=== PATIENT | female | born 1935 | race Caucasian/White ===

== ENCOUNTER 2017-11-03 10:48 | Day surgery (SDC) | payer MEDICARE, BC ==
[2017-11-03 11:16] VITALS: TEMP 98.6
[2017-11-03] MEDS ORDERED: BUPIVACAINE HCL 0.25% MPF 10 ML SOL INFIL ONE (11:42)
[2017-11-03] MEDS: DEXAMETHASONE SOD PHOS PF 10 MG/ML SOL IJ ONE ×3 (11:51→12:05)
[2017-11-03 12:27] VITALS: BP 177/97; PULSE 54; RESP 18; O2SAT 98
== END 2017-11-03 13:44 | disposition home or self-care (01) | DRG 552 ==
LOC: SURG 10:48
PROVIDERS: ATTEND Nurse Anesthetist, Certified Registered
DX: M54.5 Low back pain (principal); M48.062 Spinal stenosis, lumbar region with neurogenic claudication
CPT/HCPCS: J1100

== ENCOUNTER → 2017-12-14 | Day surgery (SDC) | payer MEDICARE, BC ==
[~2017-12-14] MED LIST: BUPIVACAINE HCL 0.25% MPF 10 ML SOL INFIL ONE; DEXAMETHASONE SOD PHOS PF 10 MG/ML SOL IJ ONE
[2017-12-14 13:38] VITALS: BP 155/93; PULSE 59; RESP 18; TEMP 97.4; O2SAT 93
== END | disposition home or self-care (01) | DRG 552 ==
LOC: SURG 12:10
PROVIDERS: ATTEND Nurse Anesthetist, Certified Registered
DX: M48.062 Spinal stenosis, lumbar region with neurogenic claudication (principal)
CPT/HCPCS: J1100

== ENCOUNTER 2018-02-22 12:33 | Day surgery (SDC) | payer MEDICARE, BC ==
[2018-02-22] MEDS ORDERED: LIDOCAINE HCL 1% MPF SOL ONE (13:08)
[2018-02-22] MEDS: BUPIVACAINE HCL 0.25% MPF 10 ML SOL INFIL ONE ×2 (13:32→13:43)
[2018-02-22 14:06] VITALS: TEMP 97.3
[2018-02-22 15:49] VITALS: PULSE 74
[2018-02-22 15:52] VITALS: BP 174/86; RESP 20; O2SAT 94
== END 2018-02-22 15:00 | disposition home or self-care (01) | DRG 554 ==
LOC: SURG 12:33
PROVIDERS: ATTEND Nurse Anesthetist, Certified Registered
DX: M12.88 Other specific arthropathies, not elsewhere classified, other specified site (principal)
CPT/HCPCS: J2001

== ENCOUNTER 2018-04-11 13:49 | Day surgery (SDC) | payer MEDICARE, BC ==
[2018-04-11 14:29] VITALS: TEMP 98
[2018-04-11] MEDS ORDERED: LIDOCAINE HCL 1% MPF 30 SOL ONE (14:49)
[2018-04-11] MEDS ORDERED: LIDOCAINE HCL 2% MPF 10 ML SOL ONE (14:49)
[2018-04-11 15:31] VITALS: BP 165/92; PULSE 68; RESP 20; O2SAT 96
== END 2018-04-11 15:41 | disposition home or self-care (01) | DRG 554 ==
LOC: SURG 13:49
PROVIDERS: ATTEND Nurse Anesthetist, Certified Registered
DX: M12.88 Other specific arthropathies, not elsewhere classified, other specified site (principal)
CPT/HCPCS: J2001

== ENCOUNTER 2018-04-26 12:14 | Day surgery (SDC) | payer MEDICARE, BC ==
[2018-04-26] MEDS: SODIUM CHLORIDE 0.9% FLUSH 10 ML SOL IV ONE ×2 (12:50→13:09)
[2018-04-26] MEDS ORDERED: FENTANYL 100MCG/2ML SOL ONE (12:59)
[2018-04-26] MEDS ORDERED: MIDAZOLAM 2 MG/2 ML SOL ONE (12:59)
[2018-04-26] MEDS ORDERED: TRIAMCINOLONE ACETONIDE 40 MG/ML SUS IM ONE (13:41)
[2018-04-26 13:58] VITALS: RESP 18; TEMP 97.4
[2018-04-26 14:43] VITALS: BP 137/71; PULSE 54; O2SAT 95
== END 2018-04-26 14:38 | disposition home or self-care (01) | DRG 554 ==
LOC: SURG 12:14
PROVIDERS: ATTEND Nurse Anesthetist, Certified Registered
DX: M12.88 Other specific arthropathies, not elsewhere classified, other specified site (principal)
CPT/HCPCS: J2250; J3010; J3300

== ENCOUNTER 2018-04-27 09:12 | Day surgery (SDC) | payer MEDICARE, BC ==
[~2018-04-27 09:12] MED LIST changes: -BUPIVACAINE HCL 0.25% MPF 10 ML SOL INFIL ONE; +BUPIVACAINE HCL 0.25% MPF 30 ML SOL INFIL ONE; -DEXAMETHASONE SOD PHOS PF 10 MG/ML SOL IJ ONE; +LIDOCAINE HCL 1% MPF 30 SOL ONE; +LIDOCAINE HCL 2% MPF 10 ML SOL ONE; +TRIAMCINOLONE ACETONIDE 40 MG/ML SUS ONE
[2018-04-27] MEDS ORDERED: BUPIVACAINE HCL 0.25% MPF 30 ML SOL INFIL ONE (10:11)
[2018-04-27] MEDS ORDERED: TRIAMCINOLONE ACETONIDE 40 MG/ML SUS ONE (10:11)
[2018-04-27] MEDS ORDERED: LIDOCAINE HCL 1% MPF 30 SOL ONE (10:11)
[2018-04-27] MEDS ORDERED: LIDOCAINE HCL 2% MPF 10 ML SOL ONE (10:12)
[2018-04-27] MEDS ORDERED: FENTANYL 100MCG/2ML SOL ONE (10:16)
[2018-04-27] MEDS ORDERED: MIDAZOLAM 2 MG/2 ML SOL ONE (10:16)
[2018-04-27] MEDS ORDERED: SODIUM CHLORIDE 0.9% FLUSH 10 ML SOL IV ONE (10:30)
[2018-04-27 10:59] VITALS: TEMP 97.4
[2018-04-27 11:11] VITALS: BP 163/87; PULSE 61; RESP 18; O2SAT 95
== END 2018-04-27 11:38 | disposition home or self-care (01) | DRG 554 ==
LOC: SURG 09:12
PROVIDERS: ATTEND Nurse Anesthetist, Certified Registered
DX: M12.88 Other specific arthropathies, not elsewhere classified, other specified site (principal)
CPT/HCPCS: J2250; J3010; J2001; J3300

== ENCOUNTER 2018-06-06 10:41 | Day surgery (SDC) | payer MEDICARE, BC ==
[2018-06-06 10:56] VITALS: TEMP 97.2
[2018-06-06] MEDS ORDERED: BUPIVACAINE HCL 0.25% MPF 30 ML SOL INFIL ONE (11:35)
[2018-06-06] MEDS ORDERED: TRIAMCINOLONE ACETONIDE 40 MG/ML SUS ONE (11:35)
[2018-06-06 12:03] VITALS: BP 137/78; PULSE 56; RESP 20; O2SAT 92
== END 2018-06-06 12:22 | disposition home or self-care (01) | DRG 554 ==
LOC: SURG 10:41
PROVIDERS: ATTEND Nurse Anesthetist, Certified Registered
DX: M12.9 Arthropathy, unspecified (principal)
CPT/HCPCS: J3300

== ENCOUNTER 2018-08-09 12:34 | Day surgery (SDC) | payer MEDICARE, BC ==
[2018-08-09] MEDS ORDERED: TRIAMCINOLONE ACETONIDE 40 MG/ML SUS IU ONE (13:34)
[2018-08-09 13:47] VITALS: BP 160/81; PULSE 74; RESP 20; TEMP 97.4; O2SAT 94
== END 2018-08-09 14:13 | disposition home or self-care (01) | DRG 552 ==
LOC: SURG 12:34
PROVIDERS: ATTEND Nurse Anesthetist, Certified Registered
DX: M48.062 Spinal stenosis, lumbar region with neurogenic claudication (principal)
CPT/HCPCS: J3300

== ENCOUNTER 2018-11-15 11:06 | Day surgery (SDC) | payer MEDICARE, BC ==
[2018-11-15] MEDS ORDERED: DEXAMETHASONE SOD PHOS PF 10 MG/ML SOL IJ ONE (11:30)
[2018-11-15] MEDS ORDERED: BUPIVACAINE HCL 0.25% MPF 30 ML SOL INFIL ONE (11:31)
[2018-11-15 11:40] VITALS: O2SAT 95
[2018-11-15 11:52] VITALS: BP 137/70; PULSE 57; RESP 18; TEMP 97.4
== END 2018-11-15 12:16 | disposition home or self-care (01) | DRG 552 ==
LOC: SURG 11:06
PROVIDERS: ATTEND Nurse Anesthetist, Certified Registered
DX: M48.062 Spinal stenosis, lumbar region with neurogenic claudication (principal)
CPT/HCPCS: J1100

== ENCOUNTER 2019-01-16 12:58 | Day surgery (SDC) | payer BC ==
[2019-01-16] MEDS ORDERED: BUPIVACAINE HCL 0.25% MPF 30 ML SOL INFIL ONE (14:01)
[2019-01-16] MEDS ORDERED: DEXAMETHASONE SOD PHOS PF 10 MG/ML SOL IJ ONE (14:01)
[2019-01-16 14:31] VITALS: PULSE 54; RESP 20; TEMP 97.2; O2SAT 94
[2019-01-16 14:32] VITALS: BP 145/67
== END 2019-01-16 14:49 | disposition home or self-care (01) | DRG 552 ==
LOC: SURG 12:58
PROVIDERS: ATTEND Nurse Anesthetist, Certified Registered
DX: M48.062 Spinal stenosis, lumbar region with neurogenic claudication (principal)
CPT/HCPCS: J1100